=== PATIENT | male | born 1990 | race Caucasian/White ===

== ENCOUNTER 2020-11-14 17:06 | Emergency (ER) | payer OTHER ==
[2020-11-14 17:25] VITALS: TEMP 98.6
[2020-11-14] MEDS ORDERED: ASPIRIN 81 MG PO STA (17:44)
[2020-11-14 17:59] LABS: Eosinophils % (A) 5 %; HCT 46.5 % (39.0-53.0); HGB 15.6 gm/dL (13.0-17.5); Lymphocytes % (A) 29 %; MCH 30.4 pg (25.0-35.0); MCHC 33.6 g/dL (31.0-37.0); MCV 90.6 fL (80.0-100.0); Mean Platelet Volume 7.2; Monocytes % (A) 5 %; Neutrophils % (A) 59 %; Platelet Count 245 k/uL (150-450); RBC 5.14 m/uL (4.30-5.90); RDW 13.6 % (11.5-15.5); WBC 9.4 k/uL (3.8-10.6)
[2020-11-14 18:00] LABS: Basophils # (A) 0.1 k/uL (0-0.2); Basophils % (A) 1 %; Eosinophils # (A) 0.5 k/uL (0-0.7); Lymphocytes # (A) 2.7 k/uL (1.0-4.8); Monocytes # (A) 0.5 k/uL (0-1.0); Neutrophils # (A) 5.5 k/uL (1.3-7.7)
--- NOTE | 2020-11-14 18:00 | ED ---
Chest Pain HPI - General Chief Complaint: Chest Pain Stated Complaint: Chest Pain Time Seen by Provider: 11/14/20 17:28 Source: patient, family Mode of arrival: ambulatory Limitations: no limitations - History of Present Illness Initial Comments: Patient is a 30-year-old male presenting to the emergency Department with complaints of intermittent chest pain over the past 2 months but increased in the last 2 days he came in for evaluation. Patient describes the pain as intermittent, lasting anywhere from a few seconds to a minute on the left side of his chest. He does not correlate pain with any certain activities, he states he actually feels better when he is up and moving around. He denies any radiation to his left shoulder or jaw. He states it's been worse over the past 1-2 days. He denies any heavy lifting or injuries. He denies any fevers or chills, no cough or chest congestion. Denies any abdominal pain or nausea or vomiting. He does admit to being an every day smoker, occasional drinker. He does not take any medications. He does not follow with a physician regularly. He states his father and grandfather both in their mid 40s and mid 50s of MIs. He admits to recent car travel to [place] about 2 weeks ago, but nothing before that. No history of blood clots. Shortness of breath, chest pain is very minimal at this time, 05/15. He denies any further complaints. His vitals are stable upon arrival. - Related Data Home Medications Medication Instructions Recorded Confirmed No Known Home Medications 11/14/20 11/14/20 Allergies Allergy/AdvReac Type Severity Reaction Status Date / Time diphenhydramine Allergy Swelling Verified 11/14/20 18:42 [From Benadryl Allergy] Review of Systems ROS Statement: Those systems with pertinent positive or pertinent negative responses have been documented in the HPI. ROS Other: All systems not noted in ROS Statement are negative. EKG Findings - EKG Comments: EKG Findings:: Normal sinus rhythm with sinus arrhythmia, no signs of acute ST segment elevation. Ventricular rate 68, ME interval 118, QT 374. Past Medical History Past Medical History: No Reported History History of Any Multi-Drug Resistant Organisms: None Reported Past Surgical History: No Surgical Hx Reported Additional Past Surgical History / Comment(s): esophgeal surgery at Past Psychological History: Anxiety Smoking Status: Current every day smoker Past Alcohol Use History: Occasional Past Drug Use History: None Reported General Exam - General Exam Comments Initial Comments: GENERAL: Patient is well-developed and well-nourished. Patient is nontoxic and in no acute distress. HEAD: Atraumatic, normocephalic. EYES: Pupils equal round and reactive to light, extraocular movements intact, sclera anicteric, conjunctiva are normal. Eyelids were unremarkable. ENT: TMs normal, nares patent, oropharynx clear without exudates. Moist mucous membranes. NECK: Normal range of motion, supple without lymphadenopathy or JVD. LUNGS: Unlabored respirations. Breath sounds clear to auscultation bilaterally and equal. No wheezes rales or rhonchi. HEART: Regular rate and rhythm without murmurs, rubs or gallops. ABDOMEN: Soft, nontender, normoactive bowel sounds. No guarding, no rebound. No masses appreciated. : Deferred MUSCULOSKELETAL: Normal extremities with adequate strength and normal range of motion, no pitting or edema. No clubbing or cyanosis. NEUROLOGICAL: Patient is alert and oriented x 3. Motor and sensory are also intact. Cranial nerves II through XII grossly intact. Symmetrical smile. Normal speech, normal gait. PSYCH: Normal mood, normal affect. SKIN: Warm, Dry, normal turgor, no rashes or lesions noted. Limitations: no limitations Course Vital Signs 11/14/20 17:22 Temperature 98.6 F Pulse Rate 75 Respiratory 18 Rate Blood Pressure 114/75 O2 Sat by Pulse 99 Oximetry Chest Pain [facility] Patient is a 30-year-old male here with intermittent chest pains for the past 2 months, worse in the past few days. His vitals are stable, EKG shows normal sinus rhythm with sinus arrhythmia, no acute ST segment changes. He does not take any medications, every day smoker, occasional drinker. Family history of heart disease. Chest x-ray shows no acute process, blood work is completely normal, including normal troponin, normal d-dimer. Patient has been resting comfortably, did give him aspirin. I discussed these findings with the patient, I do not feel like this is an acute cardiac event. We did discuss his recent increase in anxiety and stress, do feel like that is more likely the cause of this. He states he is getting soon and will have insurance in about 2 weeks. I'd will give him a few referrals for primary care follow-up. Return parameters were discussed with him and he verbalized understanding. Case discussed with Dr. Cotton. Disposition Clinical Impression: Atypical chest pain, Anxiety Disposition: HOME SELF-CARE Condition: Stable Instructions (If sedation given, give patient instructions): Anxiety (ED) Additional Instructions: Please return to the Emergency Department if symptoms worsen or any other concerns. Please follow-up with primary care physician as discussed. Is patient prescribed a controlled substance at d/c from ED?: No Referrals: None,Stated [Primary Care Provider] - 1-2 days Matthew Cantrell MD [STAFF PHYSICIAN] - 1-2 days Talisha Fontenot MD [STAFF PHYSICIAN] - 1-2 days Chema Le MD [REFERRING] - 1-2 days Time of Disposition: 19:16
[2020-11-14 18:08] LABS: ALT 15 U/L (4-49); AST 26 U/L (17-59); African American GFR (CKD) >90 (>60 ml/min/1.73 sqM); Albumin 4.8 g/dL (3.5-5.0); Alkaline Phosphatase 54 U/L (38-126); Anion Gap 9 mmol/L; Blood Urea Nitrogen 16 mg/dL (9-20); Calcium 9.8 mg/dL (8.4-10.2); Carbon Dioxide 24 mmol/L (22-30); Chloride 105 mmol/L (98-107); Glucose 104 mg/dL (74-99); Magnesium 2.1 mg/dL (1.6-2.3); Non-African American GFR(CKD) >90 (>60 ml/min/1.73 sqM); Potassium 3.9 mmol/L (3.5-5.1); Sodium 138 mmol/L (137-145); Total Bilirubin 0.6 mg/dL (0.2-1.3); Total Protein 7.6 g/dL (6.3-8.2)
[2020-11-14 18:14] LABS: INR 0.9 (<1.2); Prothrombin Time 10.2 sec (9.0-12.0)
--- NOTE | 2020-11-14 18:41 | XR ---
EXAMINATION TYPE: XR chest 2V DATE OF EXAM: 11/14/2020 COMPARISON: NONE HISTORY: Chest pain. TECHNIQUE: Frontal and lateral views of the chest are obtained. FINDINGS: There is no focal air space opacity, pleural effusion, or pneumothorax seen. The cardiac silhouette size is within normal limits. The osseous structures are intact. IMPRESSION: No acute cardiopulmonary process.
[2020-11-14 19:53] VITALS: BP 119/87; PULSE 67; RESP 16
== END 2020-11-14 19:53 | disposition home or self-care (01) ==
LOC: EC 17:06
DX: R07.89 Other chest pain (principal); F41.9 Anxiety disorder, unspecified; F17.200 Nicotine dependence, unspecified, uncomplicated
CPT/HCPCS: 36415; 71046; 80053; 83735; 83880; 84484; 85025; 85379; 85610; 85730; 93005; 99285